=== PATIENT | female | born 1960 | race Two or more races ===

== ENCOUNTER 2016-12-14 13:25 | Emergency (ER) | payer MEDICAID ==
[~2016-12-14] VITALS: Ht 152.4 cm; Wt 113.4 kg
[~2016-12-14 13:25] MED LIST: ACYCLOVIR400 MG ORAL; ADVAIR 250-501 EACH INH; ALBUTEROL2.5 MG/3 M INH; AMITRIPTYLINE H25 MG ORAL; ASPIRIN81 MG ORAL; CITALOPRAM HBR20 M1 ORAL; CYCLOBENZAPRINE10 MG ORAL; DICLOFENAC SODI75 MG ORAL; FLUTICASONE PRO16 G1 NASAL; HYDROCHLOROTHIA25 MG ORAL; NORCO 10/3251 EA ORAL; NORCO 5-325 TA1 EACH ORAL; OMEPRAZOLE40 M1 ORAL; ONDANSETRON ODT8 MG ORAL; PRAVASTATIN SOD20 M1 ORAL; PROAIR HFA8.5 GM INH; TENORMIN50 MG ORAL; TRAMADOL HCL50 MG ORAL
[2016-12-14] MEDS ORDERED: INDOMETHACIN75 MG ORAL (13:44)
[2016-12-14] MEDS ORDERED: CYMBALTA60 MG ORAL (13:44)
[2016-12-14] MEDS ORDERED: GABAPENTIN300 MG ORAL (13:44)
[2016-12-14] MEDS ORDERED: SUCRALFATE1 GM ORAL (13:44)
[2016-12-14 13:49] VITALS: BP 161/78
--- NOTE | 2016-12-14 13:56 | Emergency Room Report ---
History of Present Illness General Chief Complaint: Upper Respiratory Illness Source: Patient, Medical Record Present Illness HPI Patient is a 56-year-old female presented after having increased cough and difficulty breathing. Patient had recently been treated for strep throat reportedly. Patient had increased nonproductive cough as well as some difficulty breathing. Patient prior history of asthma. She had been taking inhaled steroids as well as the nebulizer albuterol. She denied any fever. She had multiple medication allergies. Allergies: Coded Allergies: CODEINE (Unverified Allergy, Unknown, 03/03/14) SULFA (SULFONAMIDE ANTIBIOTICS) (Verified Allergy, Unknown, 03/03/14) Uncoded Allergies: sulfa (Allergy, Unknown, 03/03/14) Patient History Past Medical History: see triage record Reviewed Nursing Documentation: PMH: Agreed, PSxH: Agreed Nursing Documentation-PMH Hx Cardiac Problems: No - arthritis,left knee replacement,fibromyalgia Hx Hypertension: Yes Hx Asthma: Yes Hx Neurological Problems: Yes Review of Systems All Other Systems: negative except mentioned in HPI Physical Exam Vital Signs Date Time Temp Pulse Resp B/P Pulse Ox O2 Delivery O2 Flow Rate FiO2 12/14/16 13:34 97.9 93 20 161/78 99 Room Air Sp02 EP Interpretation: reviewed, normal General Appearance: normal inspection, well appearing, no apparent distress, alert, GCS 15, non-toxic Head: atraumatic ENT: normal ENT inspection, hearing grossly normal, normal voice Neck: normal inspection, full range of motion, supple, no bony tend Respiratory: normal inspection, lungs clear, normal breath sounds, no respiratory distress, no retraction, no wheezing Cardiovascular #1: regular rate, rhythm, no edema Gastrointestinal: normal inspection, normal bowel sounds, non tender, soft, no guarding, no hernia Genitourinary: no CVA tenderness Musculoskeletal: normal inspection, back normal, normal range of motion Neurologic: normal inspection, alert, oriented x3, responsive, 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 Patient is given nebulized albuterol with improvement. Patient was given steroids. The patient was initially noted to be wheezing with good air movement normal oxygen saturation. Repeat lung exam showed improved breath sounds.The patient is advised to follow up with primary care doctor in 1-2 days. Patient is advised to return if any worsening condition or if any changes in status that are concerning. Last Vital Signs Date Time Temp Pulse Resp B/P Pulse Ox O2 Delivery O2 Flow Rate FiO2 12/14/16 13:49 93 20 Room Air 12/14/16 13:49 97.9 161/78 99 Status: improved Disposition: HOME, SELF-CARE Condition: Stable Scripts Guaifenesin/Dextromethorphan (Guaifenesin-Dm 400-20 mg Cplt) 1 Each Tablet 1 EACH PO EVERY 12 HOURS for For Cough, #20 TAB Prov: Rubén Saavedra 12/14/16 Albuterol Sulfate* (ALBUTEROL SULFATE MDI*) 8.5 Gm Hfa.aer.ad 2 PUFF INH Q6H, #1 EA 0 Refills Prov: Rubén Saavedra 12/14/16 Rubén Saavedra Dec 14, 2016 13:56
[2016-12-14] MEDS ORDERED: Dexamethasone 4mg/ml vial IM ONE (14:00)
[2016-12-14] MEDS: DuoNeb 0.5-3(2.5)mg/3ml neb HHN SCH ×5 (14:07→14:37)
[2016-12-14] MEDS ORDERED: Promethazine/DM 6.25mg/5ml ORAL ONE (14:15)
[2016-12-14] MEDS ORDERED: GUAIFENESIN-DM1 EAC1 PO (14:42)
[2016-12-14] MEDS ORDERED: ALBUTEROL SULF8.5 GM INH (14:42)
[2016-12-14 15:04] VITALS: BP 141/75
[2016-12-14] MEDS ORDERED: DuoNeb 0.5-3(2.5)mg/3ml neb HHN ONE (16:15)
[2016-12-14 16:21] VITALS: BP 154/78
[2016-12-14 16:22] VITALS: BP 141/75
== END 2016-12-14 16:23 | disposition home or self-care (01) ==
LOC: EMR 14:10
DX: J06.9 Acute upper respiratory infection, unspecified (principal); J45.909 Unspecified asthma, uncomplicated; Z88.5 Allergy status to narcotic agent; Z88.2 Allergy status to sulfonamides; Z86.79 Personal history of other diseases of the circulatory system; I10 Essential (primary) hypertension; Z86.69 Personal history of other diseases of the nervous system and sense organs
CPT/HCPCS: 96372; 99284; J1100; J7620

== ENCOUNTER 2017-05-12 12:42 | Emergency (ER) | payer MEDICAID, OTHER ==
[~2017-05-12] VITALS: Ht 149.9 cm; Wt 94.3 kg
[~2017-05-12 12:42] MED LIST changes: +ALBUTEROL SULF8.5 GM INH; +CYMBALTA60 MG ORAL; +GABAPENTIN300 MG ORAL; +GUAIFENESIN-DM1 EAC1 PO; +INDOMETHACIN75 MG ORAL; +SUCRALFATE1 GM ORAL
[2017-05-12] MEDS ORDERED: ADVAIR 250-501 EACH INH (13:16)
[2017-05-12] MEDS ORDERED: ZOLPIDEM TARTRAT5 MG ORAL (13:16)
[2017-05-12] MEDS ORDERED: Jardiance PO (13:16)
--- NOTE | 2017-05-12 14:24 | Emergency Room Report ---
History of Present Illness General Chief Complaint: Pain Source: Patient Present Illness HPI 43-year-old female, history of arthritis, left foot pain for one day. Patient states she noticed redness and swelling to the top of her foot, pain is worse with movement. Patient is able to bear weight weight however states that it is painful when she w/ walking. no fever or chills. Denies any insect bites. Denies any trauma no history of gout Allergies: Coded Allergies: CODEINE (Unverified Allergy, Unknown, 03/03/14) SULFA (SULFONAMIDE ANTIBIOTICS) (Verified Allergy, Unknown, 03/03/14) Uncoded Allergies: sulfa (Allergy, Unknown, 03/03/14) Patient History Past Medical History: see triage record Past Surgical History: none Pertinent Family History: none Nursing Documentation-PMH Hx Cardiac Problems: No - arthritis,left knee replacement,fibromyalgia Hx Hypertension: Yes - FULL RIGHT KNEE REPLACEMENT Hx Asthma: Yes Hx Neurological Problems: Yes Review of Systems All Other Systems: negative except mentioned in HPI Physical Exam Vital Signs Date Time Temp Pulse Resp B/P (MAP) Pulse Ox O2 Delivery O2 Flow Rate FiO2 05/12/17 12:47 98.2 95 14 116/75 98 Room Air Sp02 EP Interpretation: reviewed, normal General Appearance: normal inspection, well appearing, no apparent distress, alert, GCS 15, non-toxic Head: normocephalic, atraumatic Eyes: bilateral eye normal inspection, bilateral eye PERRL, bilateral eye EOMI ENT: normal ENT inspection, normal pharynx, normal voice, moist mucus membranes Neck: normal inspection, full range of motion, supple Respiratory: normal inspection, lungs clear, normal breath sounds, no respiratory distress, no retraction, no wheezing, speaking full sentences, chest symmetrical Cardiovascular #1: normal inspection, regular rate, rhythm, no edema, normal capillary refill Gastrointestinal: normal inspection, non tender, soft, non-distended, no guarding Musculoskeletal: other - Dorsum of left foot with 3 x 3 area of erythema, blanching, tender to palpation. No gross bony deformities. Mild edema. Limited range of motion secondary to pain Neurologic: normal inspection, alert, oriented x3, responsive, motor strength/ tone normal, sensory intact, normal gait, speech normal Psychiatric: normal inspection, judgement/insight normal, memory normal Skin: normal inspection, normal color, no rash, warm/dry, well hydrated, normal turgor Medical Decision Making Diagnostic Impression: Primary Impression: Cellulitis of foot without toes, left ER Course 57 yo F with L foot pain DDX: cellulitis / gout / fx Plan: Foot XR, pain control, abx ER course: Patient has remained stable during ED stay. Disposition: Patient is to be discharged to home. Prescriptions given are keflex/bactrim/tylenol Patient is instructed to follow up with their primary care doctor within 5 days. Strict return precautions discussed with patient such as fever, chills, worsening/severe pain, which may indicate severe illness. Patient verbalizes understanding and agrees with plan. Please note that this Emergency Department Report was dictated using [employer] machine technology software, occasionally this can lead to erroneous entry secondary to interpretation by the dictation equipment Other X-Ray Diagnostic Results Other X-Ray Diagnostic Results : X-Ray ordered: L foot # of Views/Limited Vs Complete: 3 View Indication: Pain EP Interpretation: Yes Interpretation: other - Mild soft tissue swelling. No fracture or dislocation. Interpreting ER Provider: Electronically signed by Talita Chowdhury MD Last Vital Signs Date Time Temp Pulse Resp B/P (MAP) Pulse Ox O2 Delivery O2 Flow Rate FiO2 05/12/17 12:47 98.2 95 14 116/75 98 Room Air Disposition: HOME, SELF-CARE Condition: Improved Talita Chowdhury M.D. May 12, 2017 14:24
[2017-05-12] MEDS ORDERED: KEFLEX500 MG ORAL (14:26)
[2017-05-12 14:42] VITALS: BP 122/51
--- NOTE | 2017-05-13 11:59 | Diagnostic Imaging Report ---
Indication: Pain Comparison: None Findings: 3 views of the left foot were obtained. No acute fractures, malalignment, erosions or periostitis are identified. Bone mineralization is within normal limits. Soft tissues swelling is present. Impression: No acute findings
== END 2017-05-12 14:40 | disposition home or self-care (01) ==
LOC: EMR 14:30
DX: L03.116 Cellulitis of left lower limb (principal); J45.909 Unspecified asthma, uncomplicated; Z96.651 Presence of right artificial knee joint; I10 Essential (primary) hypertension; M19.90 Unspecified osteoarthritis, unspecified site; M79.7 Fibromyalgia; Z88.6 Allergy status to analgesic agent; Z88.2 Allergy status to sulfonamides
CPT/HCPCS: 99283